=== PATIENT | female | born 1985 | race Caucasian/White ===

== ENCOUNTER 2017-10-25 16:36 | Emergency (ER) | payer OTHER ==
[~2017-10-25] VITALS: Ht 175.3 cm; Wt 145.0 kg
[2017-10-25 16:40] VITALS: TEMP 36.9; Ht 175.3 cm; Wt 145.0 kg
[2017-10-25] MEDS ORDERED: DiphenhydrAMINE HCL 50 MG/ML VIAL IV STA (17:13)
[2017-10-25] MEDS ORDERED: KETOROLAC TROMETHAMINE 15 MG/ML VIAL IV STA (17:13)
[2017-10-25] MEDS ORDERED: METOCLOPRAMIDE HCL INJ 5 MG/ML 2 ML VIAL IV STA (17:13)
[2017-10-25] MEDS ORDERED: SODIUM CHLORIDE 0.9% 1000ML 1,000 ML IV STA (17:13)
--- NOTE | 2017-10-25 17:27 | EMERGENCY ROOM VISIT NOTE ---
History First contact with patient: 16:44 Chief Complaint: NEURO SYMPTOMS Stated Complaint: FACE TINGLING, PAINS INTO EYE Nursing Triage Summary: Lump left side of face yesterday and entire left side of face became numb and tingly getting worse today. History of Present Illness The patient is a 31 year old female with hx of HTN, DMII, asthma, breast cancer , and fibromyalgia who presents to the Emergency Room with complaint of L facial lump x 1 day. Associated with L sided facial numbness/tingling, warmth, tenderness/tightness, L eye blurriness (x1hr), FRANCO/dizziness. Pain is described as stinging and throbbing in nature, 10. Denies cp, sob, abdominal pain, n/v, d/c, dysuria. No known bug/spider bites or trauma. Taken a tramadol without pain relief. 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 Of note: hx of insulin dependent diabetes but has been out of insulin x 1 month due to lack of insurance. Review of Systems see below Constitutional: No fever, No chills Eyes: + worsening of vision Respiratory: No shortness of breath Cardiovascular: No chest pain Abdomen: No pain, No nausea, No vomiting, No diarrhea, No constipation Genitourinary - Female: No dysuria Neurologic: + problem reported (L sided facial numbness/tingling, FRANCO/ dizziness) Integumentary: + problem reported (L sided facial erythema, warmth, edema and lump) Past Medical/Surgical History Medical Problems: (1) Asthma (2) Diabetes (3) Hypertension (4) Migraine Social History Smoking Status: Never Smoker Current/Historical Medications Scheduled Cephalexin Monohydrate (Keflex), 1 CAP PO QID Dicyclomine Hcl (Bentyl), 10 MG PO QID Insulin Glargine (Lantus Solostar), 26 UNITS SC QAM Tramadol (Ultram), 50 MG PO TID Trazodone Hcl (Trazodone), 100 MG PO HS Scheduled PRN Engaqulpumwtx-Royjrsrffh-Acqkq (Nyquil Severe Cold/Flu 5-6.25-10-325 mg/15Ml), 15 ML PO HS PRN for Sleep Physical Exam Vital Signs Date Time Temp Pulse Resp B/P (MAP) Pulse Ox O2 Delivery O2 Flow Rate FiO2 10/25/17 20:40 92 19 151/89 97 Room Air 10/25/17 18:40 86 18 134/85 98 Room Air 10/25/17 17:29 104 10/25/17 16:40 36.9 105 16 161/97 97 Room Air Physical Exam Skin: mild L sided facial erythema, warmth, edema and a fluctuant 2-3 cm lump anterior to L ear General Appearance: no apparent distress, + obese Head: normocephalic, atraumatic Eyes: normal inspection, PERRL, EOMI ENT: TMs normal, pharynx normal Neck: supple, no adenopathy Respiratory/Chest: lungs clear, normal breath sounds Cardiovascular: regular rate, rhythm, no murmur Abdomen / GI: normal bowel sounds, non tender, soft Neurologic/Psych: packing clerk II-XII nml as tested, no motor/sensory deficits, alert , oriented x 3 Medical Decision & Procedures Laboratory Results 10/25/17 17:40 Red Blood Count 5.13, Mean Corpuscular Volume 80.7, Mean Corpuscular Hemoglobin 27.3, Mean Corpuscular Hemoglobin Concent 33.8, Mean Platelet Volume 9.9, Neutrophils (%) (Auto) 56.5, Lymphocytes (%) (Auto) 36.8, Monocytes (%) (Auto) 5.6, Eosinophils (%) (Auto) 0.5, Basophils (%) (Auto) 0.3, Neutrophils # (Auto) 4.51, Lymphocytes # (Auto) 2.94, Monocytes # (Auto) 0.45, Eosinophils # (Auto) 0.04, Basophils # (Auto) 0.02 10/25/17 17:40 Test 10/25/17 17:40 White Blood Count 7.98 K/uL (4.8-10.8) Red Blood Count 5.13 M/uL (4.2-5.4) Hemoglobin 14.0 g/dL (12.0-16.0) Hematocrit 41.4 % (37-47) Mean Corpuscular Volume 80.7 fL (80-100) Mean Corpuscular Hemoglobin 27.3 pg (25-34) Mean Corpuscular Hemoglobin Concent 33.8 g/dl (32-36) Platelet Count 237 K/uL (130-400) Mean Platelet Volume 9.9 fL (7.4-10.4) Neutrophils (%) (Auto) 56.5 % Lymphocytes (%) (Auto) 36.8 % Monocytes (%) (Auto) 5.6 % Eosinophils (%) (Auto) 0.5 % Basophils (%) (Auto) 0.3 % Neutrophils # (Auto) 4.51 K/uL (1.4-6.5) Lymphocytes # (Auto) 2.94 K/uL (1.2-3.4) Monocytes # (Auto) 0.45 K/uL (0.11-0.59) Eosinophils # (Auto) 0.04 K/uL (0-0.5) Basophils # (Auto) 0.02 K/uL (0-0.2) RDW Standard Deviation 41.8 fL (36.4-46.3) RDW Coefficient of Variation 14.3 % (11.5-14.5) Immature Granulocyte % (Auto) 0.3 % Immature Granulocyte # (Auto) 0.02 K/uL (0.00-0.02) Anion Gap 6.0 mmol/L (3-11) Est Creatinine Clear Calc Drug Dose 178.0 ml/min Estimated GFR () 132.9 Estimated GFR (Non- 114.6 BUN/Creatinine Ratio 13.5 (10-20) Calcium Level 8.8 mg/dl (8.5-10.1) Total Bilirubin 0.2 mg/dl (0.2-1) Aspartate Amino Transf (AST/SGOT) 35 U/L (15-37) Alanine Aminotransferase (ALT/SGPT) 36 U/L (12-78) Alkaline Phosphatase 63 U/L (45-117) Total Protein 7.8 gm/dl (6.4-8.2) Albumin 3.3 gm/dl (3.4-5.0) Globulin 4.5 gm/dl (2.5-4.0) Albumin/Globulin Ratio 0.7 (0.9-2) Beta-Hydroxybutyric Acid 0.99 mg/dL (0.2-2.81) Medications Administered Medications (Trade) Dose Ordered Sig/Nahid Route Start Time Stop Time Status Last Admin Dose Admin Metoclopramide HCl (Reglan Inj) 10 mg NOW STAT IV 10/25/17 17:13 10/25/17 17:15 DC 10/25/17 17:40 10 MG Diphenhydramine HCl (Benadryl Inj) 25 mg NOW STAT IV 10/25/17 17:13 10/25/17 17:15 DC 10/25/17 17:40 25 MG Ketorolac Tromethamine (Toradol Inj) 15 mg ONE STAT IV 10/25/17 17:13 10/25/17 17:15 DC 10/25/17 17:13 15 MG Sodium Chloride 1,000 ml @ 999 mls/hr Q1H1M STAT IV 10/25/17 17:13 10/25/17 18:13 DC 10/25/17 17:13 999 MLS/HR Insulin Aspart (novoLOG ASPART) 6 units ONE STAT SC 10/25/17 19:12 10/25/17 19:16 DC 10/25/17 19:44 6 UNITS Cefazolin Sodium 1000 mg/Syringe 5 ml @ 1.667 mls/ min NOW ONCE IV 10/25/17 20:00 10/25/17 20:02 DC 10/25/17 20:12 1.667 MLS/MIN ED Course CT face: prominent intraparotid LNs CMP: glucose 369 with normal beta-hydroxybutyric acid of 0.99; Na 131 (received NS bolus) Ordered: novolog 6 units and BSG recheck 302 Received cefazolin 1g IV prior to discharge Discharge: Pt reports improvement in pain and symptoms prior to discharge home with Cephalexin 500mg QID x 7 days for facial cellulitis; also prescribed insulin Lantus 100units/ml 3 pens (based on taking 26 units QAM) given she has not taken insulin for a month as she did not have insurance and will not be able to doctor until a week to get new prescription now that she does have insurance. Medical Decision 31 year old female with hx of HTN, DMII, asthma, breast cancer, migraine and fibromyalgia who presents with L preauricular fluctuant mass associated with L sided facial erythema, warmth, and edema x 1 day consistent with likely cellulitis vs. reactive lymph node vs. parotitis vs. migraine FRANCO vs. temporal arteritis based on history and exam findings -Ordered facial CT w/t contrast -Ordered CBC w/t diff, CMP -Ordered migraine cocktail: Reglan 10mg, Benadryl 25mg and Toradol 15mg IV stat -Will follow up on labs and manage as indicated Impression Primary Impression: Cellulitis Departure Information Prescriptions Insulin Glargine (Lantus Solostar) 100 Unit/Ml Inj 26 UNITS SC QAM for 30 Days, #3 PEN Prov: Jackie Frank M.D. 10/25/17 Cephalexin Monohydrate (Keflex) 500 Mg Cap 1 CAP PO QID for 7 Days, #28 CAP Prov: Jackie Frank M.D. 10/25/17 Referrals No Doctor, Assigned (PCP) Patient Instructions [facility]
[2017-10-25] MEDS ORDERED: OPTIRAY 320 IV PRN (17:45)
[2017-10-25] MEDS ORDERED: KETOROLAC TROMETHAMINE 30 MG/ML VIAL ONE (17:46)
[2017-10-25] MEDS ORDERED: TRAM-10 PO (17:51)
[2017-10-25] MEDS ORDERED: PHEN-905 PO (17:51)
[2017-10-25] MEDS ORDERED: DICY10CA55 PO (17:51)
[2017-10-25] MEDS ORDERED: TRAZ100T29 PO (17:51)
[2017-10-25 17:53] LABS: BASO % 0.3 %; BASO ABS # 0.02 K/uL (0-0.2); COMPLETE YES; EOS % 0.5 %; HEMATOCRIT 41.4 % (37-47); IG% 0.3 %; LYMPH % 36.8 %; LYMPH ABS # 2.94 K/uL (1.2-3.4); MEAN CELL VOLUME 80.7 fL (80-100); MEAN CORPUSCULAR HEMOGLOBIN 27.3 pg (25-34); MEAN CORPUSCULAR HGB CONC 33.8 g/dl (32-36); MEAN PLATELET VOLUME 9.9 fL (7.4-10.4); MONO % 5.6 %; NEUT % 56.5 %; PLATELET COUNT 237 K/uL (130-400); RED BLOOD COUNT 5.13 M/uL (4.2-5.4); WHITE BLOOD COUNT 7.98 K/uL (4.8-10.8)
--- NOTE | 2017-10-25 18:13 | EMERGENCY ROOM VISIT NOTE ---
History Report prepared by Chucky: Yary Diaz Under the Supervision of: Dr. Rodri Vilchis M.D. First contact with patient: 16:44 Chief Complaint: NEURO SYMPTOMS Stated Complaint: FACE TINGLING, PAINS INTO EYE Nursing Triage Summary: Lump left side of face yesterday and entire left side of face became numb and tingly getting worse today. History of Present Illness The patient is a 31 year old female who presents to the Emergency Room with complaints of intermittent neurological symptoms starting yesterday. The patient was driving home when she started getting blurry vision in her left eye. She still has several hours to drive, so decided to come to the ED. The patient found a lump on the left side of her face in front of her ear yesterday. She has also had pain on the left side of her face which is stinging and pulsating. The pain goes into her left episcopalian and across her forehead. She currently rates her discomfort as a 7/10 in severity. She has a history of migraines, but her current headache is worse than her typical migraine. She has had blurry vision with her migraines in the past, but usually her vision becomes blurry in both eyes. She has tried taking tramadol to no significant relief. Tramadol usually relieves her headaches. She has had numbness and tingling on the left side of her face. She has some neck pain. She has not noticed any changes in her facial expressions. She denies any fever, chills, nausea, vomiting, diarrhea, abdominal pain, chest pain, or SOB. She denies any recent trauma or insect bites. She has a history of diabetes, hypertension, asthma, breast cancer, and fibromyalgia. She has not had her insulin in a month. Source of History: patient Onset: yesterday Position: other (global) Quality: other (neurological symptoms) Timing: intermittent Associated Symptoms: + headache, + numbness, No fevers, No chills, No chest pain, No SOB, No nausea, No vomiting, No abdominal pain, No diarrhea Note: Pt reports blurry vision, lump in left face with pain. Review of Systems See HPI for pertinent positives and negatives. A total of ten systems were reviewed and were otherwise negative. Past Medical & Surgical Medical Problems: (1) Asthma (2) Diabetes (3) Hypertension (4) Migraine Family History No pertinent family history stated. Social History Smoking Status: Never Smoker Marital Status: Occupation Status: unemployed Current/Historical Medications Scheduled Cephalexin Monohydrate (Keflex), 1 CAP PO QID Dicyclomine Hcl (Bentyl), 10 MG PO QID Insulin Glargine (Lantus Solostar), 26 UNITS SC QAM Tramadol (Ultram), 50 MG PO TID Trazodone Hcl (Trazodone), 100 MG PO HS Scheduled PRN Vbbvfxmrfeglb-Ljcqsfpgan-Ctksk (Nyquil Severe Cold/Flu 5-6.25-10-325 mg/15Ml), 15 ML PO HS PRN for Sleep Allergies Coded Allergies: Metronidazole (Unverified Allergy, Severe, SWELLING, 10/25/17) Black Pepper (Unverified Allergy, Unknown, UNKNOWN, 10/25/17) Chocolate (Unverified Allergy, Unknown, UNKNOWN, 10/25/17) Latex (Unverified Allergy, Unknown, RASH\SOB, 10/25/17) Penicillins (Unverified Allergy, Unknown, SWELLING, 10/25/17) Physical Exam Vital Signs Date Time Temp Pulse Resp B/P (MAP) Pulse Ox O2 Delivery O2 Flow Rate FiO2 10/25/17 21:15 87 18 147/81 98 Room Air 10/25/17 21:12 94 10/25/17 20:40 92 19 151/89 97 Room Air 10/25/17 18:40 86 18 134/85 98 Room Air 10/25/17 17:29 104 10/25/17 16:40 36.9 105 16 161/97 97 Room Air Physical Exam GENERAL: Awake, alert, relatively well-appearing, in no distress HENT: Normocephalic, atraumatic. Oropharynx unremarkable. Mild erythema and warmth to the left side of the face with an area of fluctuance that is tender in to preauricular area. TMs are clear. No mastoid tenderness. Mild left temporal tenderness. EYES: Normal conjunctiva. Sclera non-icteric. NECK: Supple. No nuchal rigidity. FROM. No JVD. RESPIRATORY: Clear to auscultation. CARDIAC: Regular rate, normal rhythm. Extremities warm and well perfused. Pulses equal. ABDOMEN: Soft, non-distended. No tenderness to palpation. No rebound or guarding. No masses. RECTAL: Deferred. MUSCULOSKELETAL: Chest examination reveals no tenderness. The back is symmetrical on inspection without obvious abnormality. There is no CVA tenderness to palpation. No joint edema. LOWER EXTREMITIES: Calves are equal size bilaterally and non-tender. No edema. No discoloration. NEURO: Normal sensorium. No sensory or motor deficits noted. Normal cerebellar function with ovkrxp-ue-iynw, alternating palms, etlf-tm-cwra SKIN: No rash or jaundice noted. Medical Decision & Procedures ER Provider Diagnostic Interpretation: Radiology results as stated below per my review and radiologist interpretation: FACIAL-MAXILLOFACIAL WITH CLINICAL HISTORY: 31 years-old Female presenting with facial lump and parasthesias. TECHNIQUE: Multidetector CT of the face was performed after the administration of intravenous contrast. IV contrast: Optiray 320. A dose lowering technique was used consistent with the principles of ALARA (as low as reasonably achievable). COMPARISON: None. CT DOSE (mGy.cm): The estimated cumulative dose is 290.48 mGy.cm. FINDINGS: Repairer topogram: Unremarkable. Polypoid mucosal thickening in the left maxillary sinus. Remainder of the paranasal sinuses and mastoid air cells clear. No maxillary teeth remain. Mandibular teeth do not demonstrate periapical lucency. Normal orbits Few prominent intraparotid lymph nodes suggested bilaterally. Scattered prominent bilateral cervical lymph nodes, which are not pathologically enlarged. Some mandibular glands normal. No limits for change along the mandible. No fluid collection. No displacement of the peripharyngeal fat planes. The airway is patent. No suspicious nodular enhancement. Vessels patent. Limited intracranial evaluation within normal limits. IMPRESSION: Prominent intraparotid lymph nodes bilaterally. No inflammatory changes in the face. No other soft tissue abnormality. Electronically signed by: Hamilton Conde M.D. 10/25/2017 6:43 PM Dictated Date/Time: 10/25/2017 6:38 PM Laboratory Results 10/25/17 17:40 Red Blood Count 5.13, Mean Corpuscular Volume 80.7, Mean Corpuscular Hemoglobin 27.3, Mean Corpuscular Hemoglobin Concent 33.8, Mean Platelet Volume 9.9, Neutrophils (%) (Auto) 56.5, Lymphocytes (%) (Auto) 36.8, Monocytes (%) (Auto) 5.6, Eosinophils (%) (Auto) 0.5, Basophils (%) (Auto) 0.3, Neutrophils # (Auto) 4.51, Lymphocytes # (Auto) 2.94, Monocytes # (Auto) 0.45, Eosinophils # (Auto) 0.04, Basophils # (Auto) 0.02 10/25/17 17:40 Test 10/25/17 17:40 10/25/17 20:52 White Blood Count 7.98 K/uL (4.8-10.8) Red Blood Count 5.13 M/uL (4.2-5.4) Hemoglobin 14.0 g/dL (12.0-16.0) Hematocrit 41.4 % (37-47) Mean Corpuscular Volume 80.7 fL (80-100) Mean Corpuscular Hemoglobin 27.3 pg (25-34) Mean Corpuscular Hemoglobin Concent 33.8 g/dl (32-36) Platelet Count 237 K/uL (130-400) Mean Platelet Volume 9.9 fL (7.4-10.4) Neutrophils (%) (Auto) 56.5 % Lymphocytes (%) (Auto) 36.8 % Monocytes (%) (Auto) 5.6 % Eosinophils (%) (Auto) 0.5 % Basophils (%) (Auto) 0.3 % Neutrophils # (Auto) 4.51 K/uL (1.4-6.5) Lymphocytes # (Auto) 2.94 K/uL (1.2-3.4) Monocytes # (Auto) 0.45 K/uL (0.11-0.59) Eosinophils # (Auto) 0.04 K/uL (0-0.5) Basophils # (Auto) 0.02 K/uL (0-0.2) RDW Standard Deviation 41.8 fL (36.4-46.3) RDW Coefficient of Variation 14.3 % (11.5-14.5) Immature Granulocyte % (Auto) 0.3 % Immature Granulocyte # (Auto) 0.02 K/uL (0.00-0.02) Anion Gap 6.0 mmol/L (3-11) Est Creatinine Clear Calc Drug Dose 178.0 ml/min Estimated GFR () 132.9 Estimated GFR (Non- 114.6 BUN/Creatinine Ratio 13.5 (10-20) Calcium Level 8.8 mg/dl (8.5-10.1) Total Bilirubin 0.2 mg/dl (0.2-1) Aspartate Amino Transf (AST/SGOT) 35 U/L (15-37) Alanine Aminotransferase (ALT/SGPT) 36 U/L (12-78) Alkaline Phosphatase 63 U/L (45-117) Total Protein 7.8 gm/dl (6.4-8.2) Albumin 3.3 gm/dl (3.4-5.0) Globulin 4.5 gm/dl (2.5-4.0) Albumin/Globulin Ratio 0.7 (0.9-2) Beta-Hydroxybutyric Acid 0.99 mg/dL (0.2-2.81) Bedside Glucose 302 mg/dl (70-90) Laboratory results reviewed by me Medications Administered Medications (Trade) Dose Ordered Sig/Nahid Route Start Time Stop Time Status Last Admin Dose Admin Metoclopramide HCl (Reglan Inj) 10 mg NOW STAT IV 10/25/17 17:13 10/25/17 17:15 DC 10/25/17 17:40 10 MG Diphenhydramine HCl (Benadryl Inj) 25 mg NOW STAT IV 10/25/17 17:13 10/25/17 17:15 DC 10/25/17 17:40 25 MG Ketorolac Tromethamine (Toradol Inj) 15 mg ONE STAT IV 10/25/17 17:13 10/25/17 17:15 DC 10/25/17 17:13 15 MG Sodium Chloride 1,000 ml @ 999 mls/hr Q1H1M STAT IV 10/25/17 17:13 10/25/17 18:13 DC 10/25/17 17:13 999 MLS/HR Insulin Aspart (novoLOG ASPART) 6 units ONE STAT SC 10/25/17 19:12 10/25/17 19:16 DC 10/25/17 19:44 6 UNITS Cefazolin Sodium 1000 mg/Syringe 5 ml @ 1.667 mls/ min NOW ONCE IV 10/25/17 20:00 10/25/17 20:02 DC 10/25/17 20:12 1.667 MLS/MIN ECG Indication: other Rate (beats per minute): 104 Rhythm: sinus tachycardia Findings: no acute ischemic change, other (normal axis) ED Course 1722: The patient was evaluated in room C4. A complete history and physical exam was performed. 2100: The patient has been informed of the results and treatment plan. She is ready for discharge. Medical Decision I reviewed the patient's past medical history, medications, and the nursing notes as described above. Differential diagnosis: cellulitis, parotitis, migraine headache, temporal arteritis. The patient is a 31-year-old woman with a past medical history of diabetes, migraines presents emergency Department with left-sided facial pain and redness with headache and blurred vision per hpi. On arrival the patient is uncomfortable but no acute distress, afebrile with stable vital signs. On exam the patient erythematous and warm to the left side of the face with a small half centimeter left-sided preauricular mass that is slightly tender to palpation just into an area of acne that had been excoriated and has mild surrounding erythema. No significant edema, induration or fluctuance concerning for abscess. CT of the face was done to rule out a parotiditis and ultimately shows a reactive lymph node. Patient's symptoms of headache and blurred vision resolved after IV fluids and migraine cocktail. Presentation thus most consistent with a facial cellulitis given the patient's excoriated acne. Will treat with a dose of IV Kefzol and and outpatient Keflex. Recent glucose was also elevated in the setting of the patient running out of insurance and her insulin recently. However, no acidosis present. Thus patient given sliding-scale and a prescription for her Lantus until she is able to follow-up with her doctor next week. Findings and plan for follow-up reviewed with patient. Patient agreeable and d/c'd per discharge instructions. I discussed the case with the resident physician, examined the patient, and agree with the findings and plan as documented in the residents note unless otherwise clarified here by me. Medication Reconcilliation Current Medication List: was personally reviewed by me Blood Pressure Screening Patient's blood pressure: Elevated blood pressure Blood pressure disposition: Elevated BP felt to be situational Impression Primary Impression: Facial cellulitis Additional Impressions: Hyperglycemia Migraine headache Scribe Attestation The scribe's documentation has been prepared under my direction and personally reviewed by me in its entirety. I confirm that the note above accurately reflects all work, treatment, procedures, and medical decision making performed by me. Departure Information Dispostion Home / Self-Care Prescriptions Insulin Glargine (Lantus Solostar) 100 Unit/Ml Inj 26 UNITS SC QAM for 30 Days, #3 PEN Prov: Jackie Frank M.D. 10/25/17 Cephalexin Monohydrate (Keflex) 500 Mg Cap 1 CAP PO QID for 7 Days, #28 CAP Prov: Jackie Frank M.D. 10/25/17 Referrals No Doctor, Assigned (PCP) Forms HOME CARE DOCUMENTATION FORM, IMPORTANT VISIT INFORMATION, WORK / SCHOOL INSTRUCTIONS Patient Instructions My [facility] Additional Instructions Take Cephalexin (Keflex) 500mg every 6 hours for 7 days for facial skin infection Follow up with your PCP in 3-5 days Problem Qualifiers
[2017-10-25 18:18] LABS: ALB/GLOB RATIO 0.7 (0.9-2); BUN/CREATININE RATIO 13.5 (10-20); CALCIUM 8.8 mg/dl (8.5-10.1); CREATININE 0.7 mg/dl (0.60-1.20); POTASSIUM 3.5 mmol/L (3.5-5.1)
[2017-10-25 18:38] LABS: BETA-HYDROXYBUTYRATE 0.99 mg/dL (0.2-2.81)
--- NOTE | 2017-10-25 18:44 | DIAGNOSTIC IMAGING REPORT ---
FACIAL-MAXILLOFACIAL WITH CLINICAL HISTORY: 31 years-old Female presenting with facial lump and parasthesias. TECHNIQUE: Multidetector CT of the face was performed after the administration of intravenous contrast. IV contrast: Optiray 320. A dose lowering technique was used consistent with the principles of ALARA (as low as reasonably achievable). COMPARISON: None. CT DOSE (mGy.cm): The estimated cumulative dose is 290.48 mGy.cm. 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 Polypoid mucosal thickening in the left maxillary sinus. Remainder of the paranasal sinuses and mastoid air cells clear. No maxillary teeth remain. Mandibular teeth do not demonstrate periapical lucency. Normal orbits Few prominent intraparotid lymph nodes suggested bilaterally. Scattered prominent bilateral cervical lymph nodes, which are not pathologically enlarged. Some mandibular glands normal. No limits for change along the mandible. No fluid collection. No displacement of the peripharyngeal fat planes. The airway is patent. No suspicious nodular enhancement. Vessels patent. Limited intracranial evaluation within normal limits. IMPRESSION: Prominent intraparotid lymph nodes bilaterally. No inflammatory changes in the face. No other soft tissue abnormality. Electronically signed by: Hamilton Conde M.D. 10/25/2017 6:43 PM Dictated Date/Time: 10/25/2017 6:38 PM
[2017-10-25] MEDS ORDERED: INSULIN ASPART 100 UNITS/ML 3 ML PEN SC STA (19:12)
[2017-10-25] MEDS ORDERED: KEFZOL SPECIAL PROCEDURE STOCK 1 GM ADDVIAL IV ONE (19:15)
[2017-10-25] MEDS ORDERED: CEPH500C PO ×2 (19:23→19:49)
[2017-10-25] MEDS ORDERED: CEFAZOLIN IV 1,000 MG in SYRINGE 0 ML IV ONE (20:00)
[2017-10-25] MEDS ORDERED: INSDGIPEN SC (21:01)
[2017-10-25 21:15] VITALS: BP 147/81; PULSE 87; O2SAT 98
== END 2017-10-25 21:18 | disposition home or self-care (01) ==
LOC: C.EDB 16:40 → C.EDC 21:18
DX: L03.211 Cellulitis of face (principal); E11.65 Type 2 diabetes mellitus with hyperglycemia; G43.909 Migraine, unspecified, not intractable, without status migrainosus; E11.628 Type 2 diabetes mellitus with other skin complications; I10 Essential (primary) hypertension; J45.909 Unspecified asthma, uncomplicated; M79.7 Fibromyalgia; Z91.14 Patient's other noncompliance with medication regimen; Z79.4 Long term (current) use of insulin; Z85.3 Personal history of malignant neoplasm of breast